=== PATIENT | female | born 1965 | race Caucasian/White ===

== ENCOUNTER 2016-06-26 15:59 | Emergency (ER) | payer OTHER ==
[~2016-06-26 15:59] MED LIST: ALAVERT10 MG PO; ALBUTEROL MININEB INH; ALBUTEROL17 GM INH; ALEVE; ALL DAY ALLERGY10 M2 PO; ASPIRIN PO; ATARAX PO; ATENOLOL PO; AZITHROMYCIN250 MG PO; CIPRO PO; CLINDAMYCIN HC300 MG PO; DELTASONE20 MG; FLEXERIL10 MG PO; FLONASE16 GM; GUAIFENESIN W/CO5 ML PO; HYDROCODON-ACE1 EAC7 PO; LEVOXYL88 MC1 PO; LORTAB 10-5001 EACH PO; METFORMIN PO; METOPROLOL SUCC25 MG PO; MONTELUKAST SOD10 MG PO; NAPROSYN500 MG PO; NO MEDICATIONS; OMNICEF300 M1 PO; ORUDIS75 M1 PO; PRAVASTATIN SOD40 MG PO; SYNTHROID PO; TENORETIC 50 TA1 TAB PO; TESSALON200 MG PO; ULTRAM PO; VERAMYST10 GM; VICODIN 5/1 TAB 5/50 PO; VOLTAREN75 MG PO
== END 2016-06-26 16:13 | disposition home or self-care (01) ==
LOC: CFTX 15:59
DX: L03.811 Cellulitis of head [any part, except face] (principal); I10 Essential (primary) hypertension; E11.9 Type 2 diabetes mellitus without complications; D86.9 Sarcoidosis, unspecified; Z90.49 Acquired absence of other specified parts of digestive tract; Z90.710 Acquired absence of both cervix and uterus; Z98.890 Other specified postprocedural states
CPT/HCPCS: 99282